=== PATIENT | male | born 1955 | race Caucasian/White ===

== ENCOUNTER 2019-06-07 15:17 | Observation (INO) ==
--- NOTE | 2019-06-07 15:06 | PROVIDER DOCUMENTATION ---
HPI-General Adult - General Chief Complaint: Fall Stated Complaint: hypoglycemic Time Seen by Provider: 06/07/19 15:26 Source: patient, family, EMS Allergies/Adverse Reactions: Patient Allergies Allergy/AdvReac Type Severity Reaction Status Date / Time No Known Allergies Allergy Verified 12/11/18 05:33 Home Medications: Home Medication List Medication Instructions Recorded Confirmed Last Taken Type Insulin Glargine,Hum.rec.anlog 20 units SUBQ DAILY 03/28/14 12/11/18 12/10/18 09:00 History [Lantus Solostar] Gabapentin 300 mg PO DAILY 08/03/14 12/11/18 12/10/18 21:00 History Albuterol Sulfate Inhaler 2 puff INH Q6H PRN PRN #1 inhaler 01/28/15 12/11/18 12/04/18 Rx [Ventolin Hfa] Acetaminophen [Tylenol] 500 mg PO Q4H PRN PRN 05/19/18 12/11/18 05/19/18 20:00 History Amlodipine Besylate/Benazepril 1 each PO DAILY 05/19/18 12/11/18 12/10/18 21:00 History [Amlodipine-Benazepril 10-40 mg] Atorvastatin Calcium 80 mg PO QHS 05/19/18 12/11/18 12/10/18 21:00 History Insulin Aspart Prot/Insuln Asp 18 unit SQ TID 05/19/18 12/11/18 12/10/18 21:00 History [Novolog Mix 70-30 Flexpen Syrn] Metoprolol Succinate E.r. [Toprol 50 mg PO DAILY 05/19/18 12/11/18 12/10/18 21:00 History Xl] Trazodone [Desyrel] 50 mg PO QHS 05/19/18 12/11/18 12/10/18 21:00 History Oxycodone HCl/Acetaminophen 1 ea PO TID PRN PRN #30 tab 12/11/18 Unknown Rx [Percocet 7.5-325 mg Tablet] - History of Present Illness -Gen Adult Nature of Presenting Problems: Per EMS the patient was found with minimal purposeful responsiveness and a blood sugar of 32. The patient family does reports that he fell to the ground getting out of the truck. They do report that he has had episodes with his blood sugar before, but this is worse. Discussed with patient daughter who was the last one to speak to the patient when he was normal. The last none normal time was at around noon today. The patients daughter reports that she spoke with the patient at that time by phone and he was normal. When she when to see him at 2pm the patient was not feeling well and felt that he needed sugar, and was not walking normal. The daughter reports that they have been through this before with the patient regarding his blood sugar. There is not history of stroke or atrial fibrillation. The patient does have CAD with scents. Review of Systems - Adult - REVIEW OF SYSTEMS - ADULT ROS:: unobtainable per condition Constitutional: reports: other (unable to reliably obtain given mentation.) Past History - Adult - PAST MEDICAL HISTORY-ADULT Review of Records: reports: Old Records Reviewed Cardiovascular: reports: CAD (with stenting) Neurological: denies: CVA Physical Exam-General - PHYSICAL EXAM-ADULT Initial Vital Signs Reviewed: Yes - CONSTITUTIONAL General Appearance: lethargic, slow to respond - EYES Eyes: PERRL/EOMI. negative: EOM palsy, scleral icterus - HEAD, EARS, NOSE, MOUTH & THROAT HENMT: normocephalic/atraumatic, moist mucous membranes - RESPIRATORY Respiratory: normal breath sounds - CARDIOVASCULAR Cardiovascular: regular rate, rhythm, no edema - GASTROINTESTINAL (ABDOMEN) Abdominal Exam: non tender, soft - MUSCULOSKELETAL Extremity: other (weakness in RLE, moves other extremities well.) - SKIN Integumentary: normal color, warm/dry - NEUROLOGIC Neurologic: motor weakness, other (mild left facial droop and ptosis noted on presentation. Repeat evaluation with CN-II-XII normal as tested.) - PSYCHIATRIC Psych/Mental Status: other (lethargic and blunted affect, he is oriented to name, age, and year.) Progress - PLAN OF CARE/RESULTS Result Diagrams: 06/07/19 16:00 06/07/19 16:00 - REASSESSMENT Reassessment #1 Time Reassessed: 16:56 Status: improving (Repeat NIH evaluation of 1, patient much improved. Discussed case with Dr. Li at [facility] who believes the patient will be fine, but recomeded addmision for echo and MRI. Will call to discussed with the [facility] team.) Reassessment #2 Time Reassessed: 17:06 Status: other (Discussed with hospitalist team, who have accepted the patient.) - EKG 1 Time of EKG reading by physician:: 15:33 EKG Read and Signed by:: Siddhartha Vanessa EKG Interpretation (*Must complete 3 of following elements*): Abnormal Rate: 58 Rhythm: sinus [place]: normal QRS: normal NE Interval: normal ST Wave: normal Prior EKG Comparison: changes noted Comments: no further t-wave inversion noted. Noted on previous 05/26/18 Departure - Departure Date of Disposition Decision: 06/07/19 Time of Disposition Decision: 17:06 DIAGNOSIS: Hypoglycemia, Stroke-like episode Disposition: ADMITTED INPATIENT 09 Certified Medical Emergency: Emergent Condition: Fair Referrals and Follow-Ups: Alla Schneider MD [Primary Care Provider] - - Critical Care Note This patient required my direct & personal management of CC.: No Attestation - Physician/ MISAEL Attestation Patient care was provided by Advanced Practice Provider:: No The physician spent face to face time with patient:: Yes Advanced Practice Provider documentation review:: Supervising physician onsite and consulted in the evaluation and care of this patient. The physician did have a face to face encounter with the patient. - NIH Stroke Scale NIH Type: Initial Evaluation Level of Consciousness: 0-Alert LOC Questions (ask month and age): 0-Answers Both Correctly LOC Commands (ask to open & close eyes;make a fist, let go): 0-Obeys Both Correctly Best Gaze (horizontal eye movement): 0-Normal Visual (use finger movement, counting or visual threat): 0-No Visual Loss Facial Palsy (show teeth or raise eyebrows & close eyes tght: 1-Minor Paralysis Motor Function-left arm: 0-Normal Motor Function-right arm: 0-Normal Motor Function-left le-Normal Motor Function-right le-Normal Limb Ataxia([id number], or heel to padron): 0-No Ataxia Sensory(pin prick to face,arms,trunk,legs-compare side/side): 0-No Ataxia (Sensation normal and symetric) Best Language(name item/read sentence.Ex-Down to Earth): 0-No Aphasia (Patient unable to read at baseline) Extinction and Inattention: 0-Normal NIH Total Score: 1
[2019-06-07 16:29] LABS: BASO# 0.04 X1000 (0.0-0.2); BASO% 0.4 % (0.0-0.8); EOS% 2.6 % (0.0-10.0); HEMATOCRIT 37.3 % (42.0-52.0); HEMOGLOBIN 11.9 g/dL (14.0-18.0); IMM GRAN# 0.02 X1000 (0.0-0.04); IMM GRAN% 0.2 % (0.0-0.5); LYMPH# 1.78 X1000 (1.2-3.4); LYMPH% 15.6 % (20.5-51.1); MCH 30.7 PG (27-31); MCHC 31.9 g/dL (33-37); MCV 96.1 FL (81-99); MONO# 1.19 X1000 (0.11-0.59); MONO% 10.5 % (1.7-9.3); MPV 10.8 FL (7.4-10.4); NEUT# 8.05 X1000 (1.4-6.5); NEUT% 70.7 % (42.2-75.2); PLT 255 X1000 (130-400); RBC 3.88 XMIL (4.7-6.1); RDW 12.4 % (11.5-14.5); WBC 11.38 X1000 (4.8-10.8)
--- NOTE | 2019-06-07 16:34 | Diag Imaging Result Doc PS360 ---
CT HEAD W/O CONTRAST - 06/07/2019 INDICATION: Fall and altered mental status COMPARISON: None FINDINGS: The ventricles and sulci are normal in size and contour. No intracranial mass or hemorrhage. The skull is intact. The sinuses mastoids and middle ears are clear. IMPRESSION: Negative exam. This exam was performed using automated exposure control, adjustment of mA or kV according to patient size, and/or use of iterative reconstruction technique Electronically signed by Noel Sy 06/07/2019 4:32 PM
[2019-06-07 16:35] LABS: INR 1.04; PROTIME 13.7 Seconds (11.0-16.0); PTT 29.8 Seconds (22.3-41.8)
--- NOTE | 2019-06-07 16:37 | Diag Imaging Result Doc PS360 ---
CHEST-1 VIEW - 06/07/2019 INDICATION: Fall and alterted mental status COMPARISON: 01/28/2015 FINDINGS: Lung volumes are somewhat low. The lungs are clear. Heart size is normal. No pneumothorax or pleural effusion. IMPRESSION: Negative exam. Electronically signed by Noel Sy 06/07/2019 4:35 PM
[2019-06-07 17:00] LABS: ALB/GLOB RATIO 1.4; ALBUMIN 4.2 g/dL (3.5-5.0); CALCIUM 8.5 mg/dL (8.8-10.2); CREATININE 1.6 mg/dL (0.7-1.2); POTASSIUM 4.2 mmol/L (3.5-5.1); TOTAL BILIRUBIN 0.18 mg/dL (0.20-1.00); TOTAL PROTEIN 7.1 g/dL (6.3-8.3)
--- NOTE | 2019-06-07 18:05 | HISTORY AND PHYSICAL ---
HISTORY OF PRESENT ILLNESS: Mr. Schrader is a 63-year-old whose doctor is Dr. Alla Schneider. It looks like he was admitted back on 11/06/2018. This time he came and presented with altered mental status and presyncope or near-syncope and his blood sugar was low, so hypoglycemia. Apparently, story is that he felt bad this morning. He said he was eating okay. He is not sure how much insulin he is taking. He was taking care of his grandson. His grandson was visiting. He denies history of fever, chills or pleuritic pain or head trauma or falling. No diarrhea, hematochezia, gross hematuria, or dysuria. PAST MEDICAL HISTORY: 1. Benign prostatic hypertrophy. 2. Diabetes mellitus type 2. He is on insulin. 3. Urolithiasis. 4. Osteoarthritis. 5. Hypertension. 6. Peripheral neuropathy secondary to diabetes. PAST SURGICAL HISTORY: He had an inguinal surgery I think on the right for inguinal hernia repair. ALLERGIES: No known drug allergies. FAMILY HISTORY: Positive for hypertension and hyperlipidemia. SOCIAL HISTORY: Uses tobacco, occasional alcohol. Denies illicit drugs. REVIEW OF SYSTEMS: He does not report any weight gain or loss. No fever or chills.HEENT: No change in visual or hearing acuity. Neck: No neck pain or adenopathy. Respiratory: No increased work of breathing or dyspnea. Cardiovascular: No chest pain or tachy palpitations. Gastrointestinal and Genitourinary: No gross hematuria, dysuria. Musculoskeletal/Neurologic: No significant complaints. Endocrinologic/Hemologic: No significant history until this event this afternoon. It started about 2:00. He got a little more lethargic and some confusion. His was at the bedside and said she has never seen it this bad, but he has had episodes of hypoglycemia before. PHYSICAL EXAMINATION: VITAL SIGNS: Pulse 58, respirations 18, blood pressure 171/114. Pupils are equal and round. LUNGS: Clear in all lung [place]. CARDIOVASCULAR: Regular rhythm and rate without murmur or S3. ABDOMEN: Soft. Carotid and radial pulses 2+ and symmetrical. Weight is 205 pounds, height 6 feet 3 inches. SKIN: Warm and dry. No pedal edema. NECK: Supple. No thyromegaly. NEUROLOGIC: No focal deficits. There is some question whether he had some facial slurring, but everything is resolved. LABORATORY DATA: White count 11,380, hematocrit 37, platelet count 255,000. Sodium 142, potassium 4.2 chloride 106, BUN 32, creatinine 1.6. AST 17, ALT was 11. Troponin less than 0.01. Albumin 4.2. ProTime is 13.7, INR is 1.07. His chest x-ray, negative exam. Lung volumes are somewhat low. Lungs are clear. Heart size normal. No pneumothorax or pleural effusion. Head CT without contrast, negative exam. ASSESSMENT AND PLAN: 1. Hypoglycemia. We will give him some IV fluid and keep him tonight. 2. Hypertension. Blood pressure medication will continue. He is on amlodipine and benazepril 10/40 one a day. Keep him on his atorvastatin 80 mg at bedtime and his gabapentin 300 mg a day. Right now, he is taking a 70/30 FlexPen 18 units subcutaneously t.i.d. We will hold that for now and just have him on pattern sugars and sliding scale and see what his sugars do. I am going to hold his Lantus as well just for now. He is on Toprol-XL 50 mg daily. We will continue hat. He takes OxyContin 7.5/325 t.i.d. p.r.n. pain. He is on trazodone 50 mg at bedtime. We will continue all that. 3. Hypertension. 4. He has had coronary stents placed. No sign of active cardiac ischemia. No chest pain. Troponin was less than 0.01. 5. So, the plan is to keep him. Give him some IV fluids and see how his sugars do and make some adjustments in his insulin. Hopefully he can go home tomorrow. cc: Griffin Ibrahim MD
[2019-06-07] MEDS: NS 1,000 ML IV SCH (18:46)
[2019-06-07] MEDS: HUMALOG SUBQ SCH (20:53)
[2019-06-07] MEDS ORDERED: DESYREL PO SCH (21:00)
[2019-06-08] MEDS ORDERED: TYLENOL PO PRN (00:23)
[2019-06-08] MEDS: NS 1,000 ML IV SCH (04:58)
[2019-06-08] MEDS: HUMALOG SUBQ SCH (06:26)
[2019-06-08 07:49] LABS: BASO# 0.03 X1000 (0.0-0.2); BASO% 0.3 % (0.0-0.8); EOS# 0.26 X1000 (0.0-0.7); EOS% 2.6 % (0.0-10.0); HEMATOCRIT 37.2 % (42.0-52.0); HEMOGLOBIN 11.6 g/dL (14.0-18.0); LYMPH% 17.1 % (20.5-51.1); MCHC 31.2 g/dL (33-37); MCV 96.1 FL (81-99); MONO# 1.03 X1000 (0.11-0.59); MONO% 10.4 % (1.7-9.3); MPV 10.8 FL (7.4-10.4); NEUT# 6.93 X1000 (1.4-6.5); NEUT% 69.6 % (42.2-75.2); PLT 239 X1000 (130-400); RBC 3.87 XMIL (4.7-6.1); RDW 12.3 % (11.5-14.5); WBC 9.95 X1000 (4.8-10.8)
[2019-06-08 08:10] LABS: AGAP 11; ALB/GLOB RATIO 1.3; ALBUMIN 3.8 g/dL (3.5-5.0); ALKALINE PHOSPHATASE 111 U/L (32-122); BUN 26 mg/dL (8-22); CALCIUM 8.6 mg/dL (8.8-10.2); CHLORIDE 107 mmol/L (98-107); COSMO 287; CREATININE 1.2 mg/dL (0.7-1.2); ESTIMATED GFR > 60; GLUCOSE 83 mg/dL (70-104); GOT 15 U/L (10-34); GPT 9 U/L (10-44); POTASSIUM 4.3 mmol/L (3.5-5.1); SODIUM 142 mmol/L (136-145); TCO2 24 mmol/L (25-35); TOTAL BILIRUBIN 0.36 mg/dL (0.20-1.00); TOTAL PROTEIN 6.8 g/dL (6.3-8.3)
[2019-06-08 08:17] VITALS: BP 156/79
[2019-06-08 08:26] LABS: FREE T4 0.86 ng/dL (0.93-1.70); TSH 2.5 uIUmL (0.27-4.20)
[2019-06-08] MEDS ORDERED: TOPROL XL PO SCH (09:00)
[2019-06-08] MEDS ORDERED: LOTREL 5/10 MG PO SCH (09:00)
--- NOTE | 2019-06-08 09:58 | DISCHARGE SUMMARY ---
ADMISSION DATE: 06/07/2019 DISCHARGE DATE: 06/08/2019 PHYSICIAN: HOSPITAL COURSE: A 63-year-old who came in. He presented, he had altered mental status and near syncope. Sugar found to be 30. He had no other focal neurologic deficits. No seizure. No incontinence of bowel or bladder, and he was alert and oriented when he got to the emergency room. Given some IV and some sugar. Seemed to respond well, had a good night, which was uneventful. PAST MEDICAL HISTORY: 1. Benign prostatic hypertrophy. 2. Diabetes mellitus type 2. He is on insulin. 3. Urolithiasis. 4. Osteoarthritis. 5. Hypertension. 6. Peripheral neuropathy secondary to diabetes. PAST SURGICAL HISTORY: Had inguinal surgery on the right for inguinal hernia repair. LABORATORY DATA: Unremarkable. Hematocrit 37, hemoglobin 11, white blood cell count 9950. Electrolytes look good. Sodium 142, potassium 4.3, chloride 107, BUN 26, creatinine 1.2. So it looks like his thyroid is okay. B12 and folate were normal. CT of his head without contrast was unremarkable, no acute pathology. Chest x-ray negative exam. So, we will let him go home. DISCHARGE MEDICATIONS: Continue his Ventolin HFA as needed inhaler, amlodipine, benazepril 10/40 one a day, Atorvastatin 80 mg at bedtime, gabapentin 300 mg daily. He will continue his NovoLog 70/30. He was supposed to be on 18 twice a day. I think he was only taking 10 twice a day, so I am going to have him just cut down to 10 mg of that twice a day. He is on insulin glargine 20 units daily. Will continue that, Toprol-XL 50 mg a day, and Desyrel 50 mg at bedtime. cc: Griffin Ibrahim MD MTDD
== END 2019-06-08 11:18 | disposition home or self-care (01) ==
LOC: SUPCPDRO → ED 15:17 → 3N 15:17
PROVIDERS: ATTEND Emergency Medicine